=== PATIENT | female | born 1990 | race Two or more races ===

== ENCOUNTER 2017-05-13 14:19 | Emergency (ER) | payer SELFPAY ==
[2017-05-13 14:30] VITALS: BP 118/73
--- NOTE | 2017-05-13 15:01 | ER Document Report ---
ED Oral Problem - General Chief Complaint: Mouth Problem Stated Complaint: STD CHECK Time Seen by Provider: 05/13/17 14:37 Mode of Arrival: Ambulatory Information source: Patient Notes: 26-year-old female presents to ED for complaint of mouth discomfort. She states she has had the mouth pain for about a week became much worse 2 days ago. She is concerned for STDs in her mouth. States she has white patches and very sore in her mouth. There are no white patches noted in her mouth there are no blisters noted in her mouth the patient is insistent that she would like to be tested. A GC and chlamydia swab for all as well is a regular throat culture were obtained. TRAVEL OUTSIDE OF THE [place] IN LAST 30 DAYS: No - HPI Patient complains to provider of: Other - Throat and mouth pain Onset: Last week Onset: Gradual Quality of pain: Other - States she is having a funny different feeling in her mouth Severity: Mild Pain Level: 2 Sore throat: Mild Associated symptoms: Other - funny different feeling in her mouth with white flecks to the sides of her mouth Worsened by: Nothing Relieved by: Nothing Similar symptoms previously: No Recently seen / treated by doctor/dentist: No - Related Data Allergies/Adverse Reactions: No Known Allergies Allergy (Verified 05/13/17 14:21) Past Medical History - General Information source: Patient - Social History Smoking Status: Never Smoker Cigarette use (# per day): No Chew tobacco use (# tins/day): No Smoking Education Provided: No Frequency of alcohol use: Social Drug Abuse: None Occupation: School Lives with: Family Family History: DM, Malignancy. denies: Arthritis, CAD, COPD, CVA, Hyperlipidemia, Hypertension, Thyroid Disfunction Patient has suicidal ideation: No Patient has homicidal ideation: No - Past Medical History Cardiac Medical History: Reports: None Pulmonary Medical History: Reports: None EENT Medical History: Reports: None Neurological Medical History: Reports: None Endocrine Medical History: Reports: None Renal/ Medical History: Reports: None Malignancy Medical History: Reports: None GI Medical History: Reports: None Musculoskeltal Medical History: Reports Hx Musculoskeletal Trauma Skin Medical History: Reports None Psychiatric Medical History: Reports: None Traumatic Medical History: Reports: Hx Spine Fracture - L1 burst fracture Infectious Medical History: Reports: None Past Surgical History: Reports: Hx Orthopedic Surgery - L1 fracture surgery - Immunizations Immunizations up to date: Yes Hx Diphtheria, Pertussis, Tetanus Vaccination: Yes Review of Systems - Review of Systems Constitutional: No symptoms reported EENT: Other - "funny different feeling" in her mouth for the last week getting worse last 2 days and she states she noticed some white flecks on the corners of her mouth Cardiovascular: No symptoms reported Respiratory: No symptoms reported Gastrointestinal: No symptoms reported Genitourinary: No symptoms reported Female Genitourinary: No symptoms reported Musculoskeletal: No symptoms reported Skin: No symptoms reported Hematologic/Lymphatic: No symptoms reported Neurological/Psychological: No symptoms reported -: Yes All other systems reviewed and negative Physical Exam - Vital signs Vitals: Temp Pulse Resp BP Pulse Ox 98.5 F 59 L 16 118/73 97 05/13/17 14:28 05/13/17 14:28 05/13/17 14:28 05/13/17 14:28 05/13/17 14:28 Interpretation: Normal - General General appearance: Appears well, Alert - HEENT Head: Normocephalic, Atraumatic Eyes: Normal Pupils: PERRL - Respiratory Respiratory status: No respiratory distress Chest status: Nontender Breath sounds: Normal Chest palpation: Normal - Cardiovascular Rhythm: Regular Heart sounds: Normal auscultation Murmur: No - Abdominal Inspection: Normal Distension: No distension Bowel sounds: Normal Tenderness: Nontender Organomegaly: No organomegaly - Back Back: Normal, Nontender - Extremities General upper extremity: Normal inspection, Nontender, Normal color, Normal ROM , Normal temperature General lower extremity: Normal inspection, Nontender, Normal color, Normal ROM , Normal temperature, Normal weight bearing. No: Lara's sign - Neurological Neuro grossly intact: Yes Cognition: Normal Orientation: AAOx4 Pin[place] Coma Scale Eye Opening: Spontaneous Mario Coma Scale Verbal: Oriented Mario Coma Scale Motor: Obeys Commands Pin[place] Coma Scale Total: 15 Speech: Normal Motor strength normal: LUE, RUE, LLE, RLE Sensory: Normal - Psychological Associated symptoms: Normal affect, Normal mood - Skin Skin Temperature: Warm Skin Moisture: Dry Skin Color: Normal Course - Re-evaluation Re-evalutation: 05/13/17 18:50 GC chlamydia and throat culture sent to lab on oral mucosa and throat. Patient states that her throat felt funny. No redness pertinent blisters or other abnormal appearance is noted to her mouth. Patient thinks she has an STD in her mouth. - Vital Signs Vital signs: Temp Pulse Resp BP Pulse Ox 98.5 F 59 L 16 118/73 97 05/13/17 14:28 05/13/17 14:28 05/13/17 14:28 05/13/17 14:28 05/13/17 14:28 Discharge - Discharge Clinical Impression: Mouth discomfort, Wants to be checked for STDs Condition: Stable Disposition: HOME, SELF-CARE Instructions: Family Physicians / Practices Additional Instructions: You were seen today for mouth discomfort and concerned that you have an STD. A swab was sent for gonorrhea and chlamydia as well as a throat culture these both take at least 48 hours to result. I have given you the number to ask for culture results. It is [phone] if anything comes up positive they will call you but if you want to call to check on the results you can. SORE THROAT: Sore throats may be caused by viruses, bacteria, or fungi. Most are due to a virus, and must get better on their own. Bacterial sore throats, particularly those due to "strep," need treatment with antibiotics. If an antibiotic is prescribed, be sure to take the medication for a full 10 days. Failure to take the antibiotic can result in complications such as rheumatic fever. Sometimes, an injection of antibiotics is given instead of pills or liquid. This single "shot" is equal in effectiveness to the oral medication. To relieve symptoms, take acetaminophen for pain. Sip clear liquids frequently, or eat popsicles or ice chips. Anesthetic sprays or lozenges may help. Make sure the air in the room is not too dry. Avoid using decongestants or antihistamines. Call the doctor if there is no improvement in two days, or if you have difficulty breathing, increasing throat pain, high fever, rash, or frequent vomiting. FOLLOW-UP CARE: If you have been referred to a physician for follow-up care, call the physician s office for an appointment as you were instructed or within the next two days. If you experience worsening or a significant change in your symptoms, notify the physician immediately or return to the Emergency Department at any time for re-evaluation.
== END 2017-05-13 15:46 | disposition home or self-care (01) ==
LOC: ER 14:19
DX: K13.79 Other lesions of oral mucosa (principal); R09.89 Other specified symptoms and signs involving the circulatory and respiratory systems; Z20.2 Contact with and (suspected) exposure to infections with a predominantly sexual mode of transmission
CPT/HCPCS: 87070; 87491; 87591; 99283